=== PATIENT | female | born 1975 | race Caucasian/White ===

== ENCOUNTER → 2021-12-24 | Outpatient (CLI) | payer BC, OTHER ==
[~2021-12-24] VITALS: Ht 177.8 cm; Wt 101.2 kg
[~2021-12-24] MED LIST: ASPIRIN EC81 MG PO; ASPIRIN81 MG PO; BUDESONIDE EC3 MG PO; CELEBREX200 MG PO; CLONAZEPAM1 MG PO; COLESTIPOL HCL1 GM PO; COMPAZINE10 MG PO; CYMBALTA 30 MG30 MG PO; ELIQUIS2.5 MG PO; ESTRACE 1 MG TAB1 MG PO; ESTRACE1 MG PO; IBU800 MG PO; LOMOTIL 2.5-0.1 EACH PO; OMEPRAZOLE40 MG PO; ONDANSETRON ODT8 MG PO; PERCOCET 7.5-31 EACH PO; SINGULAIR10 MG PO; TIZANIDINE HCL4 MG PO; TRAMADOL HCL50 MG PO; ZYRTEC10 MG PO
[2021-12-24 14:22] LABS: HEMOGLOBIN 15.4 gm/dl (12.3-15.3); RED BLOOD COUNT 4.64 M/UL (4.00-5.10)
[2021-12-24 14:39] LABS: BUN/CREATININE RATIO 13 (0-10)
== END ==
LOC: EDSTATUS 12:30 → OPSV2 12:30
PROVIDERS: Orthopaedic Surgery
DX: Z01.812 Encounter for preprocedural laboratory examination (principal); M17.12 Unilateral primary osteoarthritis, left knee
CPT/HCPCS: 80048; 85025